=== PATIENT | female | born 1990 | race Caucasian/White ===

== ENCOUNTER 2021-04-02 10:44 | Day surgery (SDC) | payer OTHER ==
[~2021-04-02] VITALS: Ht 160 cm; Wt 89.7 kg
[~2021-04-02 10:44] MED LIST: AMPH1CAP14 PO; BUPR150T12 PO; D31000TA2 PO; NEXP1IMP ID; NS 1,000 ML IV ONE; PANT40TA29 PO; TRAZ-252 PO; VENL75CA47 PO
[2021-04-02] MEDS ORDERED: fentaNYL 100 MCG/2 ML INJECTION As Ordered ONE (10:57)
[2021-04-02] MEDS ORDERED: propofoL 500 MG/50 ML VIAL As Ordered ONE (10:58)
[2021-04-02] MEDS ORDERED: LIDOCAINE 2% 100MG/5ML SDV (FOR ANES.) As Ordered ONE (11:01)
[2021-04-02 12:55] VITALS: BP 173/93
[2021-04-03] MEDS ORDERED: AMLO1TAB24 PO (15:14)
== END 2021-04-02 13:07 | disposition home or self-care (01) ==
LOC: M OPP 10:44
PROVIDERS: ATTEND Internal Medicine Gastroenterology
DX: K64.0 First degree hemorrhoids (principal); R19.4 Change in bowel habit; R12 Heartburn; K21.9 Gastro-esophageal reflux disease without esophagitis; Z79.899 Other long term (current) drug therapy; Z91.048 Other nonmedicinal substance allergy status
CPT/HCPCS: 43239; 45380; 88305; J3010

== ENCOUNTER 2021-04-03 11:53 | Emergency (ER) | payer OTHER ==
[~2021-04-03] VITALS: Ht 160 cm; Wt 93.5 kg
[~2021-04-03 11:53] MED LIST changes: -NS 1,000 ML IV ONE
[2021-04-03 13:35] LABS: BASO % 0.4 % (0.0-1.0); EOS # 0.3 10^3/uL (0.0-0.5); EOS % 2.6 % (0.0-3.0); HEMATOCRIT 39.6 % (36.0-47.0); LYMPH # 2.5 10^3/uL (1.5-5.0); LYMPH % 25.3 % (24.0-44.0); MEAN CORPUSCULAR HEMOGLOBIN 27.9 pg (27.0-33.0); MEAN CORPUSCULAR HGB CONC 32.8 g/dl (32.0-36.5); MONO # 1.1 10^3/uL (0.0-0.8); MONO % 10.6 % (2.0-8.0); NEUTROPHILS # 6.1 10^3/uL (1.5-8.5); NEUTROPHILS % 60.8 % (36.0-66.0); PLATELET COUNT, AUTOMATED 294 10^3/uL (150-450); RED BLOOD COUNT 4.66 10^6/uL (4.00-5.40)
[2021-04-03 14:08] LABS: ALBUMIN 3.3 GM/DL (3.2-5.2); ALT/SGPT 32 U/L (12-78); BILIRUBIN,TOTAL 0.3 MG/DL (0.2-1.0); BLOOD UREA NITROGEN 9 MG/DL (7-18); CALCIUM LEVEL 8.5 MG/DL (8.5-10.1); CARBON DIOXIDE LEVEL 29 MEQ/L (21-32); CHLORIDE LEVEL 106 MEQ/L (98-107); CREATININE FOR GFR 0.74 MG/DL (0.55-1.30); GLOMERULAR FILTRATION RATE > 60.0 (>60); GLUCOSE, FASTING 88 MG/DL (70-100); MAGNESIUM LEVEL 2.1 MG/DL (1.8-2.4); POTASSIUM SERUM 3.9 MEQ/L (3.5-5.1); SODIUM LEVEL 143 MEQ/L (136-145)
[2021-04-03] MEDS ORDERED: amLODIPine 5 MG TAB PO ONE (14:45)
[2021-04-03 15:03] VITALS: BP 154/96
[2021-04-03] MEDS ORDERED: AMLO1TAB24 PO (15:14)
[2021-04-03 16:18] VITALS: BP 127/85
--- NOTE | 2021-04-04 05:16 | ECGEPIP ---
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
== END 2021-04-03 16:20 | disposition home or self-care (01) ==
LOC: M ED 11:53
DX: K91.1 Postgastric surgery syndromes (principal); T50.995A Adverse effect of other drugs, medicaments and biological substances, initial encounter; Y92.89 Other specified places as the place of occurrence of the external cause; F33.9 Major depressive disorder, recurrent, unspecified; F90.9 Attention-deficit hyperactivity disorder, unspecified type; K21.9 Gastro-esophageal reflux disease without esophagitis; G25.81 Restless legs syndrome; Z91.048 Other nonmedicinal substance allergy status; Z79.899 Other long term (current) drug therapy; Z79.3 Long term (current) use of hormonal contraceptives